=== PATIENT | male | born 1950 | race African-American/Black ===

== ENCOUNTER 2018-09-19 05:32 | Emergency (ER) | payer BC ==
[2018-09-19] MEDS ORDERED: LIDOCAINE 2% URO-JET 5 ML KIT MM ONE (05:40)
--- NOTE | 2018-09-19 05:47 | ER Document Report ---
ED General - General Chief Complaint: Urinary Retention Stated Complaint: URINATION PROBLEMS Time Seen by Provider: 09/19/18 05:44 Notes: Patient is a pleasant 67-year-old male who presents with complaint of not being urinate for last 12 hours. He is scheduled to see Dr. Mcgee, urologist, this week because of difficulties with urinating and urinary frequency. This is the first time he has been completely unable to urinate. Also pain in the suprapubic region. No dysuria. No fevers. No other complaints at this time. He does have history of enlarged prostate. No history of urinary tract infections. TRAVEL OUTSIDE OF THE [place] IN LAST 30 DAYS: No - Related Data Allergies/Adverse Reactions: No Known Allergies Allergy (Verified 09/19/18 05:37) Past Medical History - Social History Smoking Status: Never Smoker Frequency of alcohol use: None Drug Abuse: None Family History: Reviewed & Not Pertinent Review of Systems - Review of Systems Notes: My Normal Review Basic REVIEW OF SYSTEMS: CONSTITUTIONAL : Denies fever, chills, or sweats. Denies recent illness. GASTROINTESTINAL: Severe is suprapubic abdominal pain. GENITOURINARY: No retention. MUSCULOSKELETAL: Denies neck or back pain or joint pain or swelling. ALL OTHER SYSTEMS REVIEWED AND NEGATIVE. Physical Exam - Vital signs Vitals: Temp Pulse Resp BP Pulse Ox 97.6 F 72 20 178/113 H 99 09/19/18 05:36 09/19/18 05:36 09/19/18 05:36 09/19/18 05:36 09/19/18 05:36 - Notes Notes: General Appearance: Well nourished, alert, cooperative, no acute distress, severe obvious discomfort. Vitals: reviewed, See vital signs table. Eyes: PERRL, EOMI, Conjuctiva clear Mouth: No decreasd moisture Abdomen: Normal BS, soft, No rigidity, tension of the suprapubic region consistent with a large bladder. Tender to touch over suprapubic region. Bedside ultrasound confirms distended bladder. No free fluid around the bladder. Genital: Patient has history of hydrocele which is obvious on exam. No redness or signs of infection around the scrotal genitalia region. Neuro: speech clear, oriented x 3, normal affect, responds appropriately to questions. Course - Re-evaluation Re-evalutation: 09/19/18 06:23 Patient's abdominal pain is improved with resolution of his urinary retention. He looks well. Has no infectious type symptoms. No fevers. He was likely has urinary retention due to BPH based on his recent history and the fact that his large prostate on bedside ultrasound. He is scheduled to see the urologist this Thursday. We will switch him over to a leg bag. Informed him if he has any increasing pain, recurrent urinary retention, any fevers, or any concerns for infection must return to ER immediately. Patient and agree with plan he will be discharged home. Dictation of this chart was performed using voice recognition software; therefore, there may be some unintended grammatical errors. - Vital Signs Vital signs: Temp Pulse Resp BP Pulse Ox 97.6 F 72 20 178/113 H 99 09/19/18 05:36 09/19/18 05:36 09/19/18 05:36 09/19/18 05:36 09/19/18 05:36 Discharge - Discharge Clinical Impression: Urinary retention Condition: Good Disposition: HOME, SELF-CARE Additional Instructions: Please keep the catheter in until you are evaluated by Dr. Mcgee on Thursday. Please return to the ER immediately if you have fevers, cloudy urine , or increasing pain.
[2018-09-19 07:08] VITALS: BP 169/95
== END 2018-09-19 06:45 | disposition home or self-care (01) ==
LOC: ER 05:32
DX: R33.9 Retention of urine, unspecified (principal); N43.3 Hydrocele, unspecified; R35.0 Frequency of micturition; R10.30 Lower abdominal pain, unspecified
CPT/HCPCS: 99283; 51702; C1758; J3490